=== PATIENT | female | born 1975 | race Caucasian/White ===

== ENCOUNTER → 2016-10-02 | Outpatient (CLI) | payer BC, MEDICAID | LOC: LAB 12:17 | PROVIDERS: ATTEND Emergency Medicine | DX: M54.5 Low back pain (principal); N39.0 Urinary tract infection, site not specified; R10.2 Pelvic and perineal pain | CPT/HCPCS: 87086; 87088 ==

== ENCOUNTER 2018-09-28 17:30 | Emergency (ER) | payer SELFPAY ==
[2018-09-28 17:41] VITALS: BP 139/96
[2018-09-28] MEDS ORDERED: AMOXICILLIN TR/POT CLAVULANATE 500-125 MG TAB PO ONE (18:34)
[2018-09-28] MEDS ORDERED: ACETAMINOPHEN 325 MG TABLET PO ONE (18:34)
--- NOTE | 2018-09-28 18:34 | ER Document Report ---
Addendum entered and electronically signed by CHRISTIE DAVID FNP 09/29/18 09:44: Course - Re-evaluation Re-evalutation: 09/29/18 09:38 I realized the patient did not receive Polytrim eyedrops here in the emergency department yesterday. I called the patient and let her know that I will refill the prescription. I have called [facility] and prescribed her Polytrim eyedrops. - Vital Signs Vital signs: Temp Pulse Resp BP Pulse Ox 98.2 F 108 H 20 139/96 H 96 09/28/18 17:40 09/28/18 17:40 09/28/18 17:40 09/28/18 17:40 09/28/18 17:40 Addendum entered and electronically signed by CHRISTIE DAVID FNP 09/29/18 09:38: Discharge - Discharge Clinical Impression: Sinusitis Qualifiers: Sinusitis location: frontal Chronicity: acute Recurrence: non-recurrent Qualified Code(s): J01.10 - Acute frontal sinusitis, unspecified Conjunctivitis Qualifiers: Conjunctivitis type: unspecified Laterality: bilateral Qualified Code(s): H10.9 - Unspecified conjunctivitis Condition: Stable Disposition: HOME, SELF-CARE Additional Instructions: Sinusitis You have sinusitis, an infection of the sinus cavities of the face. The sinuses are air-filled chambers which open into the inside of the nose. Bacteria and pus fill a sinus, causing pain, drainage, and fever. Sinusitis is treated with antibiotics. Often, expectorants (to thin the sinus mucous) or decongestants (to reduce swelling) are prescribed as well. Healing requires seven to 10 days. Avoid chemical fumes, pollens, dusts, and smoke (especially cigarette smoke). Keep the air humidified in your bedroom and work area and take plenty of liquids by mouth. This condition can be serious if the infection spreads. If your symptoms worsen, or if you develop severe headache, high fever, stiff neck, or a rash, you must call the doctor or return for re-evaluation. Prescriptions: Amox Tr/Potassium Clavulanate [Augmentin 875-125 mg Tablet] 1 tab PO BID #20 tablet Cetirizine HCl [Allergy Relief] 10 mg PO DAILY #30 tablet Fluticasone Propionate [Flonase Nasal Fall Branch 50 Mcg/Fall Branch 16 gm] 2 sprays NASL Q12 #1 inhaler Referrals: GIL DOMÍNGUEZ DO [Primary Care Provider] - Follow up as needed Original Note: HPI - HPI Time Seen by Provider: 09/28/18 18:06 Pain Level: 4 Context: Patient is a 43-year-old female who presents the emergency department with a chief complaints of sinus pain. She states that she has sinus pressure for the past week. Also states that she does get dizzy sometimes just due to pressure. She denies any vertigo. States that she has had some drainage to both her eyes. She is only taken a saline nasal rinse and ibuprofen to help with her pain. Denies any fever. Past medical history includes hypertension and pseudotumor. She is on Lasix and high blood pressure medication at home. - CONSTITUTIONAL Constitutional: DENIES: Fever, Chills - EENT EENT: DENIES: Sore Throat, Ear Pain, Eye problems - NEURO Neurology: REPORTS: Headache. DENIES: Weakness, Vision blurred, Dizzinesss / Vertigo - CARDIOVASCULAR Cardiovascular: DENIES: Chest pain - RESPIRATORY Respiratory: REPORTS: Coughing. DENIES: Trouble Breathing - GASTROINTESTINAL Gastrointestinal: DENIES: Abdominal Pain, Black / Bloody Stools - REPRODUCTIVE Reproductive: DENIES: : - MUSCULOSKELETAL Musculoskeletal: DENIES: Extremity pain Past Medical History - Social History Smoking Status: Never Smoker Chew tobacco use (# tins/day): No Frequency of alcohol use: None Drug Abuse: None Family History: Reviewed & Not Pertinent Patient has suicidal ideation: No Patient has homicidal ideation: No - Past Medical History Cardiac Medical History: Reports: Hx Hypertension Denies: Hx Coronary Artery Disease, Hx Heart Attack Pulmonary Medical History: Denies: Hx Asthma, Hx Bronchitis, Hx COPD, Hx Pneumonia, Hx Tuberculosis Neurological Medical History: Denies: Hx Cerebrovascular Accident, Hx Seizures Renal/ Medical History: Denies: Hx Peritoneal Dialysis GI Medical History: Reports: Hx Gastroesophageal Reflux Disease, Hx Hiatal Hernia Musculoskeletal Medical History: Denies Hx Arthritis Past Surgical History: Reports: Hx Tonsillectomy, Hx Tubal Ligation. Denies: Hx Pacemaker - Immunizations Immunizations up to date: Yes Hx Diphtheria, Pertussis, Tetanus Vaccination: Yes Vertical Provider Document - CONSTITUTIONAL Agree With Documented VS: Yes Exam Limitations: No Limitations General Appearance: No Apparent Distress - INFECTION CONTROL TRAVEL OUTSIDE OF THE [place] IN LAST 30 DAYS: No - HEENT HEENT: Atraumatic, Normocephalic, PERRLA. negative: Pharyngeal Exudate, Pharyngeal Tenderness, Pharyngeal Erythema, Tympanic Membrane Red, Tympanic Membrane Bulging Notes: Tenderness noted to frontal sinuses - NECK Neck: Normal Inspection - RESPIRATORY Respiratory: Breath Sounds Normal, No Respiratory Distress - CARDIOVASCULAR Cardiovascular: Regular Rate, Regular Rhythm Pulses: Normal: Radial - MUSCULOSKELETAL/EXTREMETIES Musculoskeletal/Extremeties: FROM - NEURO Level of Consciousness: Awake, Alert, Appropriate Motor/Sensory: No Motor Deficit, No Sensory Deficit - DERM Integumentary: Warm, Dry, No Rash Course - Re-evaluation Re-evalutation: 09/28/18 18:36 Patient has pressure noted to frontal sinuses upon palpation. Her conjunctive is injected. She will be given Augmentin for her acute sinusitis. She also be started on polymyxin eyedrops for conjunctivitis. I do not suspect a corneal abrasion or irritation. Ears are noninjected and appear normal. She is to follow-up with her primary care provider. Verbal discharge instructions were given to the patient. They verbalized understanding. They are stable for discharge. - Vital Signs Vital signs: Temp Pulse Resp BP Pulse Ox 98.2 F 108 H 20 139/96 H 96 09/28/18 17:40 09/28/18 17:40 09/28/18 17:40 09/28/18 17:40 09/28/18 17:40 Discharge - Discharge Clinical Impression: Sinusitis Qualifiers: Sinusitis location: frontal Chronicity: acute Recurrence: non-recurrent Qualified Code(s): J01.10 - Acute frontal sinusitis, unspecified Condition: Stable Disposition: HOME, SELF-CARE Additional Instructions: Sinusitis You have sinusitis, an infection of the sinus cavities of the face. The sinuses are air-filled chambers which open into the inside of the nose. Bacteria and pus fill a sinus, causing pain, drainage, and fever. Sinusitis is treated with antibiotics. Often, expectorants (to thin the sinus mucous) or decongestants (to reduce swelling) are prescribed as well. Healing requires seven to 10 days. Avoid chemical fumes, pollens, dusts, and smoke (especially cigarette smoke). Keep the air humidified in your bedroom and work area and take plenty of liquids by mouth. This condition can be serious if the infection spreads. If your symptoms worsen, or if you develop severe headache, high fever, stiff neck, or a rash, you must call the doctor or return for re-evaluation. Prescriptions: Amox Tr/Potassium Clavulanate [Augmentin 875-125 mg Tablet] 1 tab PO BID #20 tablet Cetirizine HCl [Allergy Relief] 10 mg PO DAILY #30 tablet Fluticasone Propionate [Flonase Nasal Fall Branch 50 Mcg/Fall Branch 16 gm] 2 sprays NASL Q12 #1 inhaler Referrals: GIL DOMÍNGUEZ DO [Primary Care Provider] - Follow up as needed
== END 2018-09-28 18:54 | disposition home or self-care (01) ==
LOC: ER 17:30
DX: J01.10 Acute frontal sinusitis, unspecified (principal); H10.9 Unspecified conjunctivitis; R42 Dizziness and giddiness; R51 Headache; R05 Cough; I10 Essential (primary) hypertension; Z79.899 Other long term (current) drug therapy
CPT/HCPCS: 99283

== ENCOUNTER 2018-11-26 20:54 | Emergency (ER) | payer SELFPAY ==
--- NOTE | 2018-11-26 22:13 | ER Document Report ---
ED Medical Screen (RME) - General Chief Complaint: Nose Bleed Stated Complaint: SINUS ISSUE Time Seen by Provider: 11/26/18 22:04 Primary Care Provider: GIL DOMÍNGUEZ DO [Primary Care Provider] - Follow up as needed Mode of Arrival: Ambulatory Information source: Patient Notes: 43-year-old female presented to ED for complaint of sinus pain times a month headaches. She has a history of high blood pressure and is not taking her blood pressure medicine as prescribed. She states sometimes it be to 3 days between when she takes them. She states she has had a nosebleed for the last month frequently sometimes 3 or 4 times a day with large clots. She states she is concerned this is because she has not taken her blood pressure medicine like she supposed to. She states she has not been to a doctor recently to have this evaluated. She states she woke up this afternoon with a large blood clot. She states that her left thigh has a spot that is painful to touch and sometimes it is warm but there is no knots bumps lumps or anything there it is just warm to the touch at times. There is no redness to this thigh at this time. I have greeted and performed a rapid initial assessment of this patient. A comprehensive ED assessment and evaluation of the patient, analysis of test results and completion of medical decision making process will be conducted by an additional ED providers. I have greeted and performed a rapid initial assessment of this patient. A comprehensive ED assessment and evaluation of the patient, analysis of test results and completion of medical decision making process will be conducted by an additional ED providers. TRAVEL OUTSIDE OF THE [place] IN LAST 30 DAYS: No - Related Data Allergies/Adverse Reactions: No Known Allergies Allergy (Verified 02/19/15 20:40) Past Medical History - Past Medical History Cardiac Medical History: Reports: Hx Hypertension Denies: Hx Coronary Artery Disease, Hx Heart Attack Pulmonary Medical History: Denies: Hx Asthma, Hx Bronchitis, Hx COPD, Hx Pneumonia, Hx Tuberculosis Neurological Medical History: Denies: Hx Cerebrovascular Accident, Hx Seizures Renal/ Medical History: Denies: Hx Peritoneal Dialysis GI Medical History: Reports: Hx Gastroesophageal Reflux Disease, Hx Hiatal Hernia Musculoskeltal Medical History: Denies Hx Arthritis Past Surgical History: Reports: Hx Tonsillectomy, Hx Tubal Ligation. Denies: Hx Pacemaker - Immunizations Immunizations up to date: Yes Hx Diphtheria, Pertussis, Tetanus Vaccination: Yes Physical Exam - Vital signs Vitals: Temp Pulse Resp BP Pulse Ox 98.6 F 88 16 157/96 H 99 11/26/18 21:34 11/26/18 21:34 11/26/18 21:34 11/26/18 21:34 11/26/18 21:34 Course - Vital Signs Vital signs: Temp Pulse Resp BP Pulse Ox 98.6 F 88 16 157/96 H 99 11/26/18 21:34 11/26/18 21:34 11/26/18 21:34 11/26/18 21:34 11/26/18 21:34 Doctor's Discharge - Discharge Referrals: GIL DOMÍNGUEZ DO [Primary Care Provider] - Follow up as needed
[2018-11-26 23:27] LABS: APPEARANCE,URINE CLEAR; BILIRUBIN,URINE NEGATIVE (NEGATIVE); COLOR,URINE YELLOW; GLUCOSE, URINE NEGATIVE (NEGATIVE); KETONES,URINE NEGATIVE (NEGATIVE); LEUKOCYTE ESTERASE,URINE NEGATIVE (NEGATIVE); NITRITE,URINE NEGATIVE (NEGATIVE); PROTEIN,URINE NEGATIVE (NEGATIVE); URINE SPECIFIC GRAVITY 1.023; UROBILINOGEN,URINE NEGATIVE mg/dL (<2.0)
[2018-11-27 02:02] LABS: ABSOLUTE BASOPHILS # (AUTO) 0.1 10^3/uL (0.0-0.2); ABSOLUTE EOSINOPHILS # (AUTO) 0.2 10^3/uL (0.0-0.6); ABSOLUTE LYMPHOCYTES (AUTO) 4.7 10^3/uL (0.5-4.7); ABSOLUTE MONOCYTES (AUTO) 0.7 10^3/uL (0.1-1.4); ABSOLUTE NEUT (AUTO) 6.2 10^3/uL (1.7-8.2); BASOPHILS % (AUTO) 0.8 % (0-2); EOSINOPHILS % (AUTO) 1.7 % (0-6); HEMATOCRIT 35.1 % (36.0-47.0); HEMOGLOBIN 11.7 g/dL (12.0-15.5); LYMPHOCYTES % (AUTO) 39.7 % (13-45); MEAN CORPUSCULAR HEMOGLOBIN 29.7 pg (27.0-33.4); MEAN CORPUSCULAR HGB CONC 33.3 g/dL (32.0-36.0); MEAN CORPUSCULAR VOLUME 89 fl (80-97); MONOCYTES % (AUTO) 5.6 % (3-13); PLATELET COUNT 307 10^3/uL (150-450); RED BLOOD COUNT 3.95 10^6/uL (3.72-5.28); RED CELL DISTRIBUTION WIDTH 13.6 % (11.5-14.0); SEGMENTED NEUTROPHILS % (AUTO) 52.2 % (42-78); TOTAL CELLS COUNTED % (AUTO) 100 %; WHITE BLOOD COUNT 11.9 10^3/uL (4.0-10.5)
[2018-11-27 02:22] LABS: ALANINE AMINOTRANSFERASE 22 U/L (9-52); ALBUMIN 3.8 g/dL (3.5-5.0); ALKALINE PHOSPHATASE 87 U/L (38-126); ANION GAP 7 (5-19); ASPARTATE AMINO TRANSFERASE 15 U/L (14-36); BILIRUBIN,DIRECT 0.2 mg/dL (0.0-0.4); BILIRUBIN,TOTAL 0.3 mg/dL (0.2-1.3); BLOOD UREA NITROGEN 12 mg/dL (7-20); CALCIUM 9.2 mg/dL (8.4-10.2); CARBON DIOXIDE 27 mmol/L (22-30); CHLORIDE 106 mmol/L (98-107); GLUCOSE 101 mg/dL (75-110); POTASSIUM 3.6 mmol/L (3.6-5.0); SODIUM 140.1 mmol/L (137-145); TOTAL PROTEIN 7.2 g/dL (6.3-8.2)
--- NOTE | 2018-11-27 06:34 | ER Document Report ---
ED General - General Chief Complaint: Nose Bleed Stated Complaint: SINUS ISSUE Time Seen by Provider: 11/26/18 22:04 Primary Care Provider: GIL DOMÍNGUEZ DO [Primary Care Provider] - Follow up in 3-5 days Mode of Arrival: Ambulatory Notes: Patient is a 43-year-old female with history of hypertension and pseudotumor that presents to the emergency department for chief complaint of nosebleeds, and elevated blood pressure. Patient reports she has been having frequent nosebleeds over the past month, she does take cetirizine, and uses Flonase as well, because she is been having sinus congestion does get seasonal allergies, she is supposed to be taken Diamox, amlodipine and hydrochlorothiazide, which she states she has not taken them properly, she is been under a lot of stress more recently, and thinks that is likely leading to her blood pressure being more elevated, she has not followed up with her primary care physician in several months. She denies having any significant headache at this time, her nosebleed is controlled at this time as well, she seems to notice some occurring mainly in the morning. It spent in both nostrils. She denies any, blurred vision, chest pain, shortness of breath, difficulty breathing, nausea, vomiting, abdominal pain, dysuria, hematuria, numbness, weakness or tingling in any extremity. Past Medical History: Hypertension, pseudotumor Past Surgical History: Tonsillectomy Social History: Denies tobacco, alcohol or drug use. Family History: Reviewed and noncontributory for presenting illness Allergies: Reviewed, see documented allergy list. REVIEW OF SYSTEMS: Other than noted above, the 12 point review of systems was reviewed with the pat ient and were negative, all pertinent findings are included in the HPI. PHYSICAL EXAMINATION: Vital signs reviewed, nursing noted reviewed. GENERAL: Well-appearing, well-nourished and in no acute distress. HEAD: Atraumatic, normocephalic. EYES: Eyes appear normal, extraocular movements intact, sclera anicteric, conjunctiva are normal. ENT: nares patent, however there is noted to be dried blood, on the nasal septum, no active bleeding at this time, nares are otherwise patent, oropharynx clear without exudates. Moist mucous membranes. No sinus tenderness to palpation. NECK: Normal range of motion, supple without lymphadenopathy LUNGS: Breath sounds clear to auscultation bilaterally and equal. No wheezes rales or rhonchi. HEART: Regular rate and rhythm without murmurs ABDOMEN: Soft, nontender, normoactive bowel sounds. No rebound, guarding, or rigidity. No masses appreciated. EXTREMITIES: Nontender, good range of motion, no pitting or edema. NEUROLOGICAL: No focal neurological deficits. Moves all extremities spontaneously Motor and sensory grossly intact on exam. PSYCH: Normal mood, normal affect. SKIN: Warm, Dry, normal turgor, no rashes or lesions noted on exposed skin TRAVEL OUTSIDE OF THE [place] IN LAST 30 DAYS: No - Related Data Allergies/Adverse Reactions: No Known Allergies Allergy (Verified 11/27/18 04:13) Past Medical History - General Information source: Patient - Social History Smoking Status: Unknown if Ever Smoked Family History: Reviewed & Not Pertinent Patient has suicidal ideation: No Patient has homicidal ideation: No - Past Medical History Cardiac Medical History: Reports: Hx Hypertension Denies: Hx Coronary Artery Disease, Hx Heart Attack Pulmonary Medical History: Denies: Hx Asthma, Hx Bronchitis, Hx COPD, Hx Pneumonia, Hx Tuberculosis Neurological Medical History: Denies: Hx Cerebrovascular Accident, Hx Seizures Renal/ Medical History: Denies: Hx Peritoneal Dialysis GI Medical History: Reports: Hx Gastroesophageal Reflux Disease, Hx Hiatal Hernia Musculoskeletal Medical History: Denies Hx Arthritis Past Surgical History: Reports: Hx Tonsillectomy, Hx Tubal Ligation. Denies: Hx Pacemaker - Immunizations Immunizations up to date: Yes Hx Diphtheria, Pertussis, Tetanus Vaccination: Yes Physical Exam - Vital signs Vitals: Temp Pulse Resp BP Pulse Ox 98.6 F 88 16 157/96 H 99 11/26/18 21:34 11/26/18 21:34 11/26/18 21:34 11/26/18 21:34 11/26/18 21:34 Course - Re-evaluation Re-evalutation: Patient seen and examined vital signs reviewed. Laboratory data and/or imaging were ordered as appropriate for the patient's presenting symptoms and complaint, with consideration of any critical or life threatening conditions that may be associated with their obtained history and exam as noted above. Results were reviewed when available and demonstrated only mild leukocytosis, no outward signs of infection on exam, otherwise unremarkable work-up. The patient was re-evaluated and was stable her blood pressure was elevated during her ED course, I encouraged her strongly to sedate to hammer on her phone, and to get a pillbox that she is taking her blood pressure medications properly, I do not feel adjusting her medications at this time would be appropriate as she has not been taking them as recommended, importantly I discussed with her at length that she needs to take her to Diamox, to help with her pseudotumor, as this can be causing some of the mental fogginess she is having, although she is not having any visual changes which is encouraging. Evaluation was most consistent with epistaxis, and uncontrolled hypertension. Advise follow-up with her primary care which the patient was agreeable to. Results were discussed with the patient at this point, after careful consideration I feel that that patient can be discharged from the emergency dep artment, the patient was educated treatments and reasons to return to the emergency department based on their presumed diagnosis as noted above, they were advised to followup with a primary care physician in 2-3 days. Patient was agreeable to plan of care. *Note is created using voice recognition software and may contain spelling, syntax or grammatical errors. Laboratory 11/26/18 11/27/18 11/27/18 23:00 01:47 01:47 WBC 11.9 H RBC 3.95 Hgb 11.7 L Hct 35.1 L MCV 89 MCH 29.7 MCHC 33.3 RDW 13.6 Plt Count 307 Seg Neutrophils % 52.2 Lymphocytes % 39.7 Monocytes % 5.6 Eosinophils % 1.7 Basophils % 0.8 Absolute Neutrophils 6.2 Absolute Lymphocytes 4.7 Absolute Monocytes 0.7 Absolute Eosinophils 0.2 Absolute Basophils 0.1 Sodium 140.1 Potassium 3.6 Chloride 106 Carbon Dioxide 27 Anion Gap 7 BUN 12 Creatinine 0.64 Est GFR ( Amer) > 60 Est GFR (Non-Af Amer) > 60 Glucose 101 Calcium 9.2 Total Bilirubin 0.3 Direct Bilirubin 0.2 Neonat Total Bilirubin Not Reportable Neonat Direct Bilirubin Not Reportable Neonat Indirect Bili Not Reportable AST 15 ALT 22 Alkaline Phosphatase 87 Total Protein 7.2 Albumin 3.8 Urine Color YELLOW Urine Appearance CLEAR Urine pH 5.0 Ur Specific Clayton 1.023 Urine Protein NEGATIVE Urine Glucose (UA) NEGATIVE Urine Ketones NEGATIVE Urine Blood LARGE H Urine Nitrite NEGATIVE Urine Bilirubin NEGATIVE Urine Urobilinogen NEGATIVE Ur Leukocyte Esterase NEGATIVE Urine WBC (Auto) 1 Urine RBC (Auto) 13 Squamous Epi Cells Auto 2 Urine Mucus (Auto) RARE Urine Ascorbic Acid NEGATIVE - Vital Signs Vital signs: Temp Pulse Resp BP Pulse Ox 97.5 F 89 18 141/80 H 96 11/27/18 06:57 11/27/18 06:57 11/27/18 06:57 11/27/18 06:57 11/27/18 06:57 - Laboratory Result Diagrams: 11/27/18 01:47 11/27/18 01:47 Laboratory results interpreted by me: 11/26/18 11/27/18 23:00 01:47 WBC 11.9 H Hgb 11.7 L Hct 35.1 L Urine Blood LARGE H Discharge - Discharge Clinical Impression: Epistaxis Hypertension Qualifiers: Hypertension type: unspecified Qualified Code(s): I10 - Essential (primary) hypertension Condition: Stable Disposition: HOME, SELF-CARE Instructions: Nosebleed Instructions ([facility]) Additional Instructions: Please continue taking your previously prescribed blood pressure medications as directed, please call your primary care physician to schedule an appointment sometime either later this week or next week, keep your nose moist, you can use a [place] gel to keep your nose moist, I also recommend you holding off on taking your cetirizine for right now, as this can dry up your nose, and make your nosebleeds more frequent. Forms: Return to Work Referrals: GIL DOMÍNGUEZ DO [Primary Care Provider] - Follow up in 3-5 days
[2018-11-27 06:58] VITALS: BP 141/80
== END 2018-11-27 06:57 | disposition home or self-care (01) ==
LOC: ER 20:54
DX: R04.0 Epistaxis (principal); I10 Essential (primary) hypertension; K21.9 Gastro-esophageal reflux disease without esophagitis; K44.9 Diaphragmatic hernia without obstruction or gangrene; Z98.51 Tubal ligation status
CPT/HCPCS: 36415; 80053; 81001; 85025; 99283

== ENCOUNTER 2019-07-19 08:10 | Emergency (ER) | payer SELFPAY ==
[2019-07-19 08:15] VITALS: BP 144/84
--- NOTE | 2019-07-19 10:22 | ER Document Report ---
ED General - General Chief Complaint: Toothache Stated Complaint: TOOTH/GUM PAIN, FACIAL PAIN Time Seen by Provider: 07/19/19 09:40 Primary Care Provider: GIL DOMÍNGUEZ DO [Primary Care Provider] - Follow up as needed Notes: Patient is a 44-year-old white female with no significant past medical history who presents to the emergency department with a chief complaint of toothache to the left upper area that began a few days ago. She states she is felt a lump to the upper gumline in the same area that she feels is a abscess formation. She admits to a history of bad teeth. Has an appointment with a dentist on Monday but requesting medications to assist in the interim. Denies any fever nausea vomiting diarrhea chills or night sweats. Denies any tongue or throat swelling. TRAVEL OUTSIDE OF THE [place] IN LAST 30 DAYS: No - Related Data Allergies/Adverse Reactions: No Known Allergies Allergy (Verified 11/27/18 04:13) Home Medications: Amlodipine, Diomex, HCTC Past Medical History - Social History Smoking Status: Unknown if Ever Smoked Family History: Reviewed & Not Pertinent Patient has suicidal ideation: No Patient has homicidal ideation: No - Past Medical History Cardiac Medical History: Reports: Hx Hypertension Denies: Hx Coronary Artery Disease, Hx Heart Attack Pulmonary Medical History: Denies: Hx Asthma, Hx Bronchitis, Hx COPD, Hx Pneumonia, Hx Tuberculosis Neurological Medical History: Denies: Hx Cerebrovascular Accident, Hx Seizures Renal/ Medical History: Denies: Hx Peritoneal Dialysis GI Medical History: Reports: Hx Gastroesophageal Reflux Disease, Hx Hiatal Hernia Musculoskeletal Medical History: Denies Hx Arthritis Past Surgical History: Reports: Hx Tonsillectomy, Hx Tubal Ligation. Denies: Hx Pacemaker - Immunizations Immunizations up to date: Yes Hx Diphtheria, Pertussis, Tetanus Vaccination: Yes Review of Systems - Review of Systems EENT: Other - Dental pain -: Yes All other systems reviewed and negative Physical Exam - Vital signs Vitals: Temp Pulse Resp BP Pulse Ox 98.5 F 101 H 16 144/84 H 96 07/19/19 08:14 07/19/19 08:14 07/19/19 08:14 07/19/19 08:14 07/19/19 08:14 - General General appearance: Appears well, Alert - HEENT Head: Normocephalic, Atraumatic Eyes: Normal Conjunctiva: Normal Extraocular movements intact: Yes Eyelashes: Normal Pupils: PERRL Ears: Normal External canal: Normal Tympanic membrane: Normal Sinus: Normal Nasal: Normal Mouth/Lips: Other - Small nodule appreciated to the gumline above the #11/#12 tooth area. No gingival abscess appreciated for drainage. Affected area is tender to percussion including the tooth. Poor dentition throughout. Pharynx: Normal Neck: Normal - Respiratory Respiratory status: No respiratory distress Chest status: Nontender Breath sounds: Normal Chest palpation: Normal - Cardiovascular Rhythm: Regular Heart sounds: Normal auscultation - Neurological Neuro grossly intact: Yes Cognition: Normal Orientation: AAOx4 Jorge Coma Scale Eye Opening: Spontaneous Murray Coma Scale Verbal: Oriented Murray Coma Scale Motor: Obeys Commands Murray Coma Scale Total: 15 Speech: Normal - Psychological Associated symptoms: Normal affect, Normal mood - Skin Skin Temperature: Warm Skin Moisture: Dry Skin Color: Normal Course - Re-evaluation Re-evalutation: 07/19/19 10:20 History and physical consistent with a dental abscess formation. Patient was placed on Leapfactor Given Peridex mouthwash. Counseled her at length regarding the importance of outpatient follow-up with a dentist on Monday as discussed. Advise she return here or any ER immediately with any new, persistent or worsening symptoms. She verbalized understood and agreed. - Vital Signs Vital signs: Temp Pulse Resp BP Pulse Ox 98.5 F 101 H 16 144/84 H 96 07/19/19 08:14 07/19/19 08:14 07/19/19 08:14 07/19/19 08:14 07/19/19 08:14 Discharge - Discharge Clinical Impression: Dental abscess, Dentalgia Condition: Stable Disposition: HOME, SELF-CARE Instructions: Toothache ([facility]) Additional Instructions: Follow-up with the dentist on Monday morning and your regular doctor in 2 to 3 days for reevaluation. Return here or any ER immediately with any new, persistent or worsening symptoms. Prescriptions: Penicillin V Potassium [Penicillin Vk 500 mg Tablet] 500 mg PO QID #40 tablet Chlorhexidine Gluconate [Peridex] 15 ml MM BID #120 mouthwash Referrals: GIL DOMÍNGUEZ DO [Primary Care Provider] - Follow up as needed
== END 2019-07-19 10:33 | disposition home or self-care (01) ==
LOC: ER 08:10
DX: K04.7 Periapical abscess without sinus (principal); I10 Essential (primary) hypertension; Z98.51 Tubal ligation status
CPT/HCPCS: 99282